=== PATIENT | male | born 1960 | race Caucasian/White ===

== ENCOUNTER 2016-09-01 11:55 | Emergency (ER) | payer OTHER ==
[~2016-09-01] VITALS: Ht 185.4 cm; Wt 95.3 kg
[~2016-09-01 11:55] MED LIST: LSNP10T PO; RABE20TA PO
--- NOTE | 2016-09-01 13:58 | ED Integumentary General ---
General Chief Complaint: Skin/Wound Problems Stated Complaint: R POINTER FINGER INJ Nursing Triage Note: Pt c/o abcess to R index finger after getting a rope burn from dog leash. Pt had been treating wound w/ neosporin and gauze. Pt thinks there is a piece of gauze stuck in finger. Source: patient Exam Limitations: no limitations History of Present Illness Time seen by provider: 13:53 Initial Comments The patient is a 56-year-old white male who presents with a history of a lesion on the dorsal surface of the proximal phalanx of the right index finger. He stated that this began about 2 months ago when he caught a black Labrador running loose and snapped a leather leash on it. The the dog then jerked and pulled and AV UL SED a flap of skin. He then cleaned it up, and placed Neosporin and a gauze dressing over it. The next day when he attempted to remove the gauze seemed to stick and he had to pick threads out with a tweezer. It has remained raw and tender and has ultimately developed a large dome. Timing/Duration: other (2 months) Location: hands Allergies and Home Medications Allergies Coded Allergies: codeine (Verified Allergy, Intermediate, RASH, 10/01/13) Home Medications No Active Prescriptions or Reported Meds Constitutional: see HPI EENTM: no symptoms reported Respiratory: cough dyspnea on exertion Cardiovascular: no symptoms reported Gastrointestinal: no symptoms reported Musculoskeletal: other (multiple problems. Has had discectomy and fusion of cervical spine. Has significant problems with lumbar spine and hips. He also has recently developed a left olecranon bursitis.) Skin: no symptoms reported Psychiatric/Neurological: No Symptoms Reported Endocrine: No Symptoms Reported Past Gtesyhb-Pluwxm-Rqmdww Hx Patient Social History Alcohol Use: Occasionally Uses Recreational Drug Use: No Smoking Status: Current Everyday Smoker Type Used: Cigarettes Recent Foreign Travel: No Contact w/Someone Who Travel: No Recent Infectious Disease Expo: No Recent Hopitalizations: No Physical Abuse Screen: No Sexual Abuse: No Immunizations Up To Date Tetanus Booster (TDap): Unknown Seasonal Allergies Seasonal Allergies: No Surgeries HX Surgeries: Yes (back discectomy L4-5) Respiratory Hx Respiratory Disorders: No Cardiovascular Hx Cardiac Disorders: No Neurological Hx Neurological Disorders: Yes Reproductive System Hx Reproductive Disorders: No Sexually Transmitted Disease: No Genitourinary Hx Genitourinary Disorders: No Gastrointestinal Hx Gastrointestinal Disorders: No Musculoskeletal Hx Musculoskeletal Disorders: Yes Musculoskeletal Disorders: Degenerate Disk Disease, Arthritis, Fractures Endocrine Hx Endocrine Disorders: No HEENT HX ENT Disorders: No Cancer Hx Cancer: No Psychosocial Hx Psychiatric Problems: No Integumentary HX Skin/Integumentary Disorder: No Blood Transfusions Hx Blood Disorders: No Family Medical History Significant Family History: Heart Disease, Diabetes, Hypertension Family Medial History: Family history: Diabetes mellitus 03 MOTHER History of - respiratory disease 03 FATHER, Onset:Unknown (EMPHYSEMA) 09 BROTHER, Onset:Unknown (COPD) Physical Exam Vital Signs Vital Sign - Last 12Hours 09/01/16 12:56 Temp 97.1 Pulse 71 Resp 18 B/P 144/75 Pulse Ox 96 O2 Delivery Room Air Capillary Refill : Less Than 3 Seconds General Appearance: mild distress HEENT: normal ENT inspection Neck: non-tender full range of motion supple normal inspection Cardiovascular: normal peripheral pulses regular rate, rhythm no edema no gallop no JVD no murmur Respiratory: chest non-tender lungs clear normal breath sounds no respiratory distress no accessory muscle use Extremities: other (there is a 1 cm in diameter lesion over the dorsal aspect of the proximal phalanx of the right index finger. This is considerably heaped up and has a rubbery feel to it. There is a central brown scab appearing plaque. This is tender to palpation) Progress/Results/Core Measures Results/Orders Vital Signs/I&O Vital Sign - Last 12Hours 09/01/16 12:56 Temp 97.1 Pulse 71 Resp 18 B/P 144/75 Pulse Ox 96 O2 Delivery Room Air Blood Pressure Mean: 98 Departure Communication Progress Notes The wound was cleaned with Hibiclens. The central plaque was peeled back with a 16-gauge needle. There was no pus to be seen. The quite material within was grisly and fibrosis. A culture swab was taken. Given these findings it is concluded that this needs to be surgically removed by one of the general surgeons. I spoke to Dr. Zamorano who will see him of this week at 3 p.m. Impression Impression: Primary Impression: hypertrophic/reactive lesion right index finger Disposition: 01 HOME, SELF-CARE Condition: Stable/Unchanged Departure-Patient Inst. Referrals: [facility] (PCP/Family) Primary Care Physician Patient Instructions: Wound Care (DC) Add. Discharge Instructions: All discharge instructions reviewed with patient and/or family. Voiced understanding. Keep wound clean and dry See Dr. Zamorano at 3 p.m. on 09/04. His office phone number is [phone] Scripts No Active Prescriptions or Reported Meds EFRAIN GRULLON MD Sep 01, 2016 13:58
[2016-09-01 14:10] VITALS: BP 144/75
== END 2016-09-01 14:10 | disposition home or self-care (01) ==
LOC: EDUNIT# 11:55 → ER 11:56
DX: L91.8 Other hypertrophic disorders of the skin (principal); F17.210 Nicotine dependence, cigarettes, uncomplicated
CPT/HCPCS: 87070; 87205; 99282

== ENCOUNTER 2016-09-08 14:58 | Outpatient (CLI) | payer OTHER ==
[~2016-09-08] VITALS: Ht 185.4 cm; Wt 97.2 kg
--- OUTSIDE RECORDS SUMMARY | 2016-09-08 15:01 | XMS REPORT | Continuity of Care Document ---
Author Author [facility] Organization [facility] Address Unknown Phone Unavailable Care Team Providers Care Marketing Communications Associate Name Role Phone [facility] PCP Insurance Providers Payer Name Policy Number Subscriber Name Relationship Unknown \ Boni Saunders Georgette 18 Self / Same As Patient Advance Directives Directive Response Recorded Date/Time Advance Directives No 09/01/16 1:05pm Health Care Power of Die Engraver No 09/01/16 1:05pm Organ Donor No 09/01/16 1:05pm Resuscitation Status Full Code 09/01/16 1:05pm Chief Complaint and Reason for Visit Chief Complaint Skin/Wound Problems Reason for Visit hypertrophic/reactive lesion right index finger Problems Active Problems Medical Problem Onset Date Status Abdominal pain Unknown Acute Chest pain Unknown Acute acute hyponatremia Unknown Acute Medications No known medications. Social History Social History Problem Response Recorded Date/Time Alcohol Use Occasionally Uses 10/01/2013 3:16am Recreational Drug Use No 10/01/2013 3:16am Recent Foreign Travel No 10/01/2013 3:16am Recent Infectious Disease Exposure No 10/01/2013 3:16am Hospitalization with Isolation Denies 10/03/2013 11:37am Sexually Transmitted Disease No 09/01/2016 1:05pm Smoking Status Current Everyday Smoker 09/01/2016 1:05pm Type Used Cigarettes 09/01/2016 1:05pm Recent Hopitalizations No 09/01/2016 1:05pm Sexually Transmitted Disease No 09/01/2016 1:05pm Hospitalization with Isolation Denies 10/03/2013 11:37am Query Response Start Date Stop Date Smoking Status Current Everyday Smoker Hospital Discharge Instructions No hospital discharge instructions. Plan of Care Discharge Date 09/01/16 2:10pm Disposition 01 HOME, SELF-CARE Condition at Discharge Stable/Unchanged Instructions/Education Provided Wound Care (DC) Prescriptions See Medication Section Referrals [facility] - Primary Care Physician Additional Instructions/Education All discharge instructions reviewed with patient and/or family. Voiced understanding. Keep wound clean and dry See Dr. Zamorano at 3 p.m. on 09/04. His office phone number is [phone] Functional Status No functional status results. Allergies, Adverse Reactions, Alerts Allergen Type Severity Reaction Status Last Updated Codeine Allergy Intermediate RASH Active 10/01/13 Immunizations No immunization records. Vital Signs Acute Vital Signs Vital Response Date/Time Temperature (Fahrenheit) 97.1 degrees F (97.6 - 99.5) 09/01/2016 12:56pm Temperature (Calculated Celsius) 36.72230 degrees C (36.4 - 37.5) 09/01/2016 12:56pm Temperature Source Temporal 09/01/2016 12:56pm Pulse Rate (adult) 71 bpm (60 - 90) 09/01/2016 12:56pm Respiratory Rate 18 bpm (12 - 24) 09/01/2016 12:56pm O2 Sat by Pulse Oximetry 96 % (88 - 100) 09/01/2016 12:56pm Blood Pressure 144/75 mm Hg 09/01/2016 12:56pm Blood Pressure Mean 98 mm Hg 09/01/2016 12:56pm Pain Numeric Pain Scale 5-Moderate Pain 09/01/2016 12:56pm Height (Feet) 6 feet 09/01/2016 12:56pm Height (Inches) 1 inches 09/01/2016 12:56pm Height (Calculated Centimeters) 185.620512 cm 09/01/2016 12:56pm Weight (Pounds) 210 pounds 09/01/2016 12:56pm Weight (Calculated Kilograms) 95.387232 kilograms 09/01/2016 12:56pm Capillary Refill Capillary Refill Less Than 3 Seconds 09/01/2016 12:56pm Height 6 ft 1 in Weight 210 lb Body Mass Index 27.7 kg/m^2 Results No known relevant diagnostic tests, laboratory data and/or discharge summary. Procedures No known history of procedures. Encounters Encounter Location Arrival/Admit Date Discharge/Depart Date Attending Provider Departed Emergency Room [facility] 09/01/16 11:56am 05/10 2:10pm EFRAIN GRULLON MD Recent Diagnosis
== END 2016-09-08 15:30 | disposition home or self-care (01) ==
LOC: PREOP 14:58
PROVIDERS: ATTEND Surgery
DX: Z01.818 Encounter for other preprocedural examination (principal); Z11.2 Encounter for screening for other bacterial diseases; L98.9 Disorder of the skin and subcutaneous tissue, unspecified
CPT/HCPCS: 87081

== ENCOUNTER 2016-09-17 09:47 | Day surgery (SDC) | payer OTHER ==
[~2016-09-17] VITALS: Ht 185.4 cm; Wt 97.2 kg
[~2016-09-17 09:47] MED LIST changes: +ceFAZolin 2 GM IV (SDC ONLY) 50 ML ONE
--- OUTSIDE RECORDS SUMMARY | 2016-09-17 09:49 | XMS REPORT | Continuity of Care Document ---
Author Author [facility] Organization [facility] Address Unknown Phone Unavailable Care Team Providers Care Editor House Organ Name Role Phone [facility] PCP Insurance Providers Payer Name Policy Number Subscriber Name Relationship Unknown \ Boni Saunders Georgette 18 Self / Same As Patient Advance Directives Directive Response Recorded Date/Time Advance Directives No 09/01/16 1:05pm Health Care Power of Inspector Bicycle No 09/01/16 1:05pm Organ Donor No 09/01/16 [...] Care (DC) Prescriptions See Medication Section Referrals [facility] - Primary Care Physician Additional Instructions/Education All discharge instructions reviewed with patient and/or family. Voiced understanding. Keep wound clean and dry See Dr. Zamorano at 3 p.m. on 09/04. His office phone number is [phone] Functional Status No functional status results. Allergies, Adverse Reactions, Alerts Allergen Type Severity Reaction Status Last Updated Codeine Allergy Intermediate RASH Active 10/01/13 Immunizations No immunization records. Vital Signs Acute Vital Signs Vital Response Date/Time Temperature (Fahrenheit) 97.1 degrees F (97.6 - 99.5) 09/01/2016 12:56pm Temperature (Calculated Celsius) 36.82089 degrees C (36.4 - 37.5) 09/01/2016 12:56pm [...] 1 inches 09/01/2016 12:56pm Height (Calculated Centimeters) 185.107090 cm 09/01/2016 12:56pm Weight (Pounds) 210 pounds 09/01/2016 12:56pm Weight (Calculated Kilograms) 95.246160 kilograms 09/01/2016 12:56pm Capillary Refill Capillary Refill Less Than 3 Seconds 09/01/2016 12:56pm Height 6 ft 1 in Weight 210 lb Body Mass Index 27.7 kg/m^2 Results No known relevant diagnostic tests, laboratory data and/or discharge summary. Procedures No known history of procedures. Encounters Encounter Location Arrival/Admit Date Discharge/Depart Date Attending Provider Departed Emergency Room [facility] 09/01/16 11:56am 05/10 2:10pm EFRAIN GRULLON MD Recent Diagnosis
--- OUTSIDE RECORDS SUMMARY | 2016-09-17 09:49 | XMS REPORT | Continuity of Care Document ---
Author Author [facility] Organization [facility] Address Unknown Phone Unavailable Care Team Providers Care Billiard Table Assembler Name Role Phone [facility] PCP Insurance Providers Payer Name Policy Number Subscriber Name Relationship Unknown \ Boni Saunders Georgette 18 Self / Same As Patient Advance Directives Directive Response Recorded Date/Time Advance Directives No 09/01/16 1:05pm Health Care Power of Quality Control Operator No 09/01/16 1:05pm Organ Donor No 09/01/16 [...] Care (DC) Prescriptions See Medication Section Referrals [facility] - Primary Care Physician Additional Instructions/Education All discharge instructions reviewed with patient and/or family. Voiced understanding. Keep wound clean and dry See Dr. Zamorano at 3 p.m. on 09/04. His office phone number is [phone] Functional Status No functional status results. Allergies, Adverse Reactions, Alerts Allergen Type Severity Reaction Status Last Updated Codeine Allergy Intermediate RASH Active 10/01/13 Immunizations No immunization records. Vital Signs Acute Vital Signs Vital Response Date/Time Temperature (Fahrenheit) 97.1 degrees F (97.6 - 99.5) 09/01/2016 12:56pm Temperature (Calculated Celsius) 36.62796 degrees C (36.4 - 37.5) 09/01/2016 12:56pm [...] 1 inches 09/01/2016 12:56pm Height (Calculated Centimeters) 185.984595 cm 09/01/2016 12:56pm Weight (Pounds) 210 pounds 09/01/2016 12:56pm Weight (Calculated Kilograms) 95.908732 kilograms 09/01/2016 12:56pm Capillary Refill Capillary Refill Less Than 3 Seconds 09/01/2016 12:56pm Height 6 ft 1 in Weight 210 lb Body Mass Index 27.7 kg/m^2 Results No known relevant diagnostic tests, laboratory data and/or discharge summary. Procedures No known history of procedures. Encounters Encounter Location Arrival/Admit Date Discharge/Depart Date Attending Provider Departed Emergency Room [facility] 09/01/16 11:56am 05/10 2:10pm EFRAIN GRULLON MD Recent Diagnosis
[2016-09-17] MEDS ORDERED: ceFAZolin 2 GM IV (SDC ONLY) 50 ML IV ONE (10:15)
[2016-09-17] MEDS ORDERED: NAPR220T66 PO (10:18)
[2016-09-17 10:21] VITALS: BP 161/100
[2016-09-17] MEDS ORDERED: BUPIVACAINE 0.25% 30 ML (SENSORCAINE) VIAL ONE (10:38)
[2016-09-17] MEDS ORDERED: MIDAZOLAM 2 MG/2 ML (VERSED) VIAL ONE (10:48)
[2016-09-17] MEDS ORDERED: LACTATED RINGERS 1,000 ML IV ONE (10:50)
[2016-09-17] MEDS ORDERED: ONDANSETRON 4 MG/2 ML (SDV) Z0FRAN ONE (10:50)
[2016-09-17] MEDS ORDERED: SEVOFLURANE (ULTANE) 15 ML INHAL SOLN ONE ×2 (10:50→12:56)
[2016-09-17] MEDS ORDERED: DEXAMETHASONE PF 10 MG/ML (DECADRON) VIAL ONE (10:50)
[2016-09-17] MEDS ORDERED: proPOfol 200 MG/20 ML (DIPRIVAN) VIAL IV ONE (10:50)
[2016-09-17] MEDS ORDERED: LIDOCAINE PF 2% 10 ML (XYLOCAINE) AMP ONE (10:50)
[2016-09-17] MEDS ORDERED: fentaNYL INJECTION 100 MCG/2 ML AMP ONE (10:51)
[2016-09-17] MEDS ORDERED: EPINEPHrine INJECTION 1 MG/ML AMP ONE (11:53)
[2016-09-17] MEDS ORDERED: LACTATED RINGERS 1,000 ML IV SCH (12:45)
[2016-09-17] MEDS ORDERED: ONDANSETRON 4 MG/2 ML (SDV) Z0FRAN IVP PRN (13:15)
[2016-09-17] MEDS ORDERED: HYDROmorphone (DILAUDID) 2 MG/ML VIAL IVP PRN (13:15)
[2016-09-17] MEDS ORDERED: MEPERIDINE (DEMEROL) INJ 50 MG/ML IVP PRN (13:15)
[2016-09-17] MEDS ORDERED: morphine INJ 10 MG/ML 1ML (SYR OR VIAL) IVP PRN (13:15)
[2016-09-17 14:00] VITALS: BP 139/88
--- NOTE | 2016-09-17 14:04 | Progress Note-Post Operative ---
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 Estimated blood loss (mL): minimal Specimen(s) collected squamous cell carcinoma SUSHMA BUTCHER MD Sep 17, 2016 2:04 pm
--- NOTE | 2016-09-17 14:05 | Discharge Inst-Simple/Standard ---
Discharge Inst-Standard Discharge Medications New, Converted or Re-Newed RX: RX on Chart Patient Instructions/Follow Up Plan of Care/Instructions/FU: dressings to stay intact until Thursday. Follow-up with my nurse on Thursday; right hand to be kept elevated Activity as Tolerated: Yes Discharge Diet: No Restrictions SUSHMA BUTCHER MD Sep 17, 2016 2:05 pm
[2016-09-17 14:30] VITALS: BP 154/95
[2016-09-17 15:00] VITALS: BP 120/102
[2016-09-17] MEDS ORDERED: HYDR-3812 PO (15:38)
--- NOTE | 2016-09-18 11:14 | OPERATIVE REPORT ---
PROCEDURE PHYSICIAN: SUSHMA BUTCHER DATE OF PROCEDURE: 09/17/2016 PREOPERATIVE DIAGNOSIS: 5 cm lesion dorsum of right index finger. 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 OPERATION: 1. Wide excision. 2. Full thickness skin grafting (30 cm sq.) SURGEON: Jaun INDICATION FOR THE PROCEDURE: This gentleman presented with a rapidly enlarging, raised lesion over the dorsal aspect of the right index finger, concerning for skin cancer. He was offered wide excision and full-thickness skin graft. Informed consent was obtained after reviewing the details and complications of postop hematoma, bleeding and failure of the graft. Potential for additional surgery was also highlighted. DESCRIPTION OF THE PROCEDURE: He was placed supine on the operating table and general anesthesia induced. A gram of Ancef was administered intravenously as prophylaxis against wound infection. Sequential compression devices were placed around his legs, to minimize the risk of venous thrombosis. 1. Right upper extremity was prepared and draped in the usual sterile manner. A full-thickness skin graft about 7 cm long x 6 cm wide was obtained from his right deltoid region. Subcutaneous tissue was excised and the skin edges were undermined, eventually being closed using a combination of 2-0 and 3-0 nylon sutures. A sterile dressing was then applied. 2. EXCISION WITH FULL THICKNESS GRAFTING: After establishing preemptive analgesia with 0.25% Marcaine with epinephrine the lesion over the dorsum of the area was excised to the level of the tendons. It was confirmed to be squamous cell carcinoma. Hemostasis was achieved using cautery and the skin graft placed appropriately. It was secured using interrupted 4-0 nylon sutures and a nonadherent dressing applied. He tolerated the procedure well, was extubated in the operating room and taken to the recovery room in a stable condition. Job ID: [id number] Dictated Date: 09/17/2016 13:59:09 Sinker Winder Date: 09/18/2016 11:04:02 / jennifer MOYER
== END 2016-09-17 15:12 | disposition home or self-care (01) ==
LOC: SDC 09:47
PROVIDERS: ATTEND Surgery
DX: C44.622 Squamous cell carcinoma of skin of right upper limb, including shoulder (principal)

== ENCOUNTER → 2023-06-22 | Outpatient (CLI) | payer MEDICARE, MEDICAID ==
[~2023-06-22] VITALS: Ht 185.4 cm; Wt 97.2 kg
[~2023-06-22] MED LIST changes: +ACHD5005 PO; +NAPR220T66 PO; -ceFAZolin 2 GM IV (SDC ONLY) 50 ML ONE
== END | disposition home or self-care (01) ==
LOC: PREOP 08:21
PROVIDERS: ATTEND Specialist
DX: Z01.818 Encounter for other preprocedural examination (principal)

== ENCOUNTER 2023-06-26 10:04 | Day surgery (SDC) | payer MEDICARE, MEDICAID ==
[~2023-06-26] VITALS: Ht 185.4 cm; Wt 97.2 kg
[2023-06-26] MEDS ORDERED: TIMOLOL 0.5% (CATARACTS) 0.3 ML BTL OU PRN (10:45)
[2023-06-26] MEDS ORDERED: POVIDONE IODINE OPHTH SOLN 5% 30 ML OP ONE (10:45)
[2023-06-26] MEDS ORDERED: MOXIFLOXACIN OPHTH SOLN 5 MG/ML 0.5 ML SYRINGE OP ONE (10:45)
[2023-06-26] MEDS ORDERED: LIDOCAINE PF 1% 2 ML VIAL IR PRN (10:45)
[2023-06-26 10:50] VITALS: BP 164/87
[2023-06-26] MEDS: TETRACAINE 0.5% OPHTH SOLN 5 ML BTL OU PRN ×4 (11:13→11:19)
[2023-06-26] MEDS: TROPICAMIDE 1% OPH SOLN (MYDRIACYL) 15 ML BTL OP SCH ×3 (11:14→11:19)
[2023-06-26] MEDS: PHENYLEPHRINE 10% OPHTH SOLN 5 ML BTL OU SCH ×3 (11:14→11:19)
--- NOTE | 2023-06-26 11:27 | Ophthalmologist Pre-Op Note ---
Pre-Operative Progress Note H&P Reviewed The H&P was reviewed, patient examined and no changes noted. Date H&P Reviewed: Jun 26, 2023 Time H&P Reviewed: 11:27 Pre-Op Dx Cataract, Right Eye PEDRITO DOLAN MD Jun 26, 2023 11:27
[2023-06-26] MEDS ORDERED: MIDAZOLAM INJ 2 MG/2 ML VIAL ONE (11:31)
--- NOTE | 2023-06-26 11:48 | Ophthalmology Operative Report ---
Cataract removal/placement IOL PREOPERATIVE DIAGNOSIS: Cataract Right Eye POSTOPERATIVE DIAGNOSIS: Cataract Right Eye PROCEDURE: Cataract removal and placement of posterior chamber implant, right eye SURGEON: Jonny Dolan ANESTHESIA: Topical with sedation COMPLICATIONS: None ESTIMATED BLOOD LOSS: Minimal DESCRIPTION OF PROCEDURE: After proper informed consent was obtained, the patient, a 63 male, was taken to the Operating Room and the right eye was anesthetized with tetracaine. The right eye was then prepped and draped in the usual manner. A wire lid speculum was placed. A paracentesis was made at the left hand position. Preservative free lidocaine was injected into the anterior chamber followed by viscoelastic. A clear corneal incision was made in the temporal position. A capsulorrhexis was preformed and the central nuclear and cortical material were removed. The posterior capsule was polished and Kadeem 19.0 CNA0T0 IOL was placed into the capsular bag. The residual viscoelastic was aspirated and balanced saline solution was injected into the anterior chamber. Moxifloxacin was injected into the anterior chamber. The wound was checked and found to be water tight. The patient tolerated the procedure well without complications. JONNY DOLAN MD Jun 26, 2023 11:48
[2023-06-26 11:53] VITALS: BP 158/90
--- NOTE | 2023-06-26 12:49 | Anesthesia-General Post-Op ---
MAC Patient Condition Mental Status/LOC: Same as Preop Cardiovascular: Satisfactory Nausea/Vomiting: Absent Respiratory: Satisfactory Pain: Controlled Complications: Absent Post Op Complications Complications None Follow Up Care/Instructions Patient Instructions None needed. Anesthesiology Discharge Order Discharge Order Patient is doing well, no complaints, stable vital signs, no apparent adverse anesthesia problems. No complications reported per nursing. GRIFFIN WHITLEY CRNA Jun 26, 2023 12:49
== END 2023-06-26 11:59 | disposition home or self-care (01) ==
LOC: SDC 10:04
PROVIDERS: ATTEND Specialist
DX: F17.200 Nicotine dependence, unspecified, uncomplicated (principal); Z85.828 Personal history of other malignant neoplasm of skin
CPT/HCPCS: 66984; V2632

== ENCOUNTER 2023-07-03 10:20 | Outpatient (CLI) | payer MEDICARE, MEDICAID ==
[~2023-07-03] VITALS: Ht 185.4 cm; Wt 97.2 kg
== END 2023-07-03 14:00 | disposition home or self-care (01) ==
LOC: PREOP 10:20
PROVIDERS: ATTEND Specialist
DX: Z01.818 Encounter for other preprocedural examination (principal)

== ENCOUNTER 2023-07-10 09:40 | Day surgery (SDC) | payer MEDICARE, MEDICAID ==
[~2023-07-10] VITALS: Ht 185.4 cm; Wt 97.2 kg
[2023-07-10] MEDS ORDERED: TIMOLOL 0.5% (CATARACTS) 0.3 ML BTL OU PRN ×2 (10:00)
[2023-07-10] MEDS ORDERED: MOXIFLOXACIN OPHTH SOLN 5 MG/ML 0.5 ML SYRINGE OP ONE ×2 (10:00)
[2023-07-10] MEDS: TETRACAINE 0.5% OPHTH SOLN 5 ML BTL OU PRN ×3 (10:00→10:09)
[2023-07-10] MEDS ORDERED: PHENYLEPHRINE 10% OPHTH SOLN 5 ML BTL OU SCH (10:00)
[2023-07-10] MEDS ORDERED: POVIDONE IODINE OPHTH SOLN 5% 30 ML OP ONE ×2 (10:00)
[2023-07-10] MEDS ORDERED: TROPICAMIDE 1% OPH SOLN (MYDRIACYL) 15 ML BTL OP SCH (10:00)
[2023-07-10] MEDS ORDERED: TETRACAINE 0.5% OPHTH SOLN 5 ML BTL OU PRN (10:00)
[2023-07-10] MEDS ORDERED: LIDOCAINE PF 1% 2 ML VIAL IR PRN ×2 (10:00)
[2023-07-10] MEDS: PHENYLEPHRINE 10% OPHTH SOLN 5 ML BTL OU SCH ×2 (10:04→10:09)
[2023-07-10] MEDS: TROPICAMIDE 1% OPH SOLN (MYDRIACYL) 15 ML BTL OP SCH ×2 (10:05→10:09)
[2023-07-10 10:06] VITALS: BP 167/82
--- NOTE | 2023-07-10 11:08 | Ophthalmologist Pre-Op Note ---
Pre-Operative Progress Note H&P Reviewed The H&P was reviewed, patient examined and no changes noted. Date H&P Reviewed: Jul 10, 2023 Time H&P Reviewed: 11:07 Pre-Op Dx Cataract, Left Eye PEDRITO DOLAN MD Jul 10, 2023 11:07
[2023-07-10] MEDS ORDERED: MIDAZOLAM INJ 2 MG/2 ML VIAL ONE (11:12)
--- NOTE | 2023-07-10 11:33 | Ophthalmology Operative Report ---
Cataract removal/placement IOL PREOPERATIVE DIAGNOSIS: Cataract Left Eye POSTOPERATIVE DIAGNOSIS: Cataract Left Eye PROCEDURE: Cataract removal and placement of posterior chamber implant, left eye SURGEON: Jonny Dolan ANESTHESIA: Topical with sedation COMPLICATIONS: None ESTIMATED BLOOD LOSS: Minimal DESCRIPTION OF PROCEDURE: After proper informed consent was obtained, the patient, a 63 male, was taken to the Operating Room and the left eye was anesthetized with tetracaine. The left eye was then prepped and draped in the usual manner. A wire lid speculum was placed. A paracentesis was made at the left hand position. Preservative free lidocaine was injected into the anterior chamber followed by viscoelastic. A clear corneal incision was made in the temporal position. A capsulorrhexis was preformed and the central nuclear and cortical material were removed. The posterior capsule was polished and an Kadeem 19.5 CNA0T0 was placed into the capsular bag. The residual viscoelastic was aspirated and balanced saline solution was injected into the anterior chamber. Moxifloxacin was injected into the anterior chamber. The wound was checked and found to be water tight. The patient tolerated the procedure well without complications. JONNY DOLAN MD Jul 10, 2023 11:33
--- NOTE | 2023-07-10 14:31 | Anesthesia-General Post-Op ---
MAC Patient Condition Mental Status/LOC: Same as Preop Cardiovascular: Satisfactory Nausea/Vomiting: Absent Respiratory: Satisfactory Pain: Controlled Complications: Absent Post Op Complications Complications None Follow Up Care/Instructions Patient Instructions None needed. Anesthesiology Discharge Order Discharge Order Patient is doing well, no complaints, stable vital signs, no apparent adverse anesthesia problems. No complications reported per nursing. APRIL PAUL CRNA Jul 10, 2023 14:31
== END 2023-07-10 13:31 | disposition home or self-care (01) ==
LOC: SDC 09:40
PROVIDERS: ATTEND Specialist
DX: H25.9 Unspecified age-related cataract (principal); F17.210 Nicotine dependence, cigarettes, uncomplicated
CPT/HCPCS: 66984; V2632